=== PATIENT | female | born 1965 | race Caucasian/White ===

== ENCOUNTER 2021-10-28 09:02 | Inpatient (IN) ==
--- NOTE | 2021-10-28 10:34 | Cat Scan Report ---
INDICATION: Partial small bowel obstruction COMPARISON: Previous examination dated 10/11/2021 performed at [facility] TECHNIQUE: Axial images were obtained through the abdomen and pelvis. Sagittally and coronally reformatted images. FINDINGS: Lung bases:No pulmonary parenchymal density. No calcified or noncalcified nodule. No pleural or pericardial effusion Liver:Negative to the limits of noncontrast enhanced examination. Liver contour is smooth without evidence for cirrhosis Gallbladder, bilary:Gallbladder is not identified consistent cholecystectomy. No dilated bile ducts Spleen:No splenomegaly Pancreas:No pancreatic mass. No peripancreatic abnormality Adrenal glands:Negative Kidneys,ureters,bladder:No solid renal mass. No hydronephrosis. No obstructing or nonobstructing calculi. No hydroureter. No ureteral calculus. No bladder stone. No detectable bladder mass. Gastrointestinal:No detectable colonic mass. There is no diverticulitis. Negative small bowel. No mechanical small bowel obstruction. No bowel wall thickening. No focal abnormality. Negative stomach and duodenum. No focal abnormality. Appendix: The appendix is removed Vascular:No abdominal aortic aneurysm. Incidental note is made of a retroaortic left renal vein Lymphatic:No retroperitoneal adenopathy. No significant mesenteric adenopathy. Mesentery, peritoneum:No free intraperitoneal fluid. No intra-abdominal abscess. No pneumoperitoneum Reproductive:Uterus is not identified consistent with hysterectomy. No adnexal mass Musculoskeletal:No lumbar compression fractures. Degenerative disc narrowing at L5-S1. There is a hypertrophied left L5 transverse process with unilateral sacral pseudoarticulation. Sacrum is negative. No fracture. Pelvis and hips are negative. No anterior abdominal wall or inguinal hernia. IMPRESSION: 1. Previous cholecystectomy, appendectomy, hysterectomy 2. Otherwise negative noncontrast enhanced CT scan. There is no mechanical small bowel obstruction. The exam was performed using radiation dose optimization techniques including, but not limited to, automated exposure control, adjustment of the mA and/or kV according to patient size and use of iterative reconstruction technique. Interpreted and Authenticated by: Juan Carlos Lynn 10/28/21
[2021-10-28] MEDS: ONDANSETRON 4 MG/2 ML VIAL IV PRN ×2 (11:11→21:39)
[2021-10-28] MEDS: LACTATED RINGERS 1,000 ML IV SCH ×2 (11:11→21:25)
[2021-10-28] MEDS: HYDROmorphone 0.5 MG/0.5 ML SYRINGE IV PRN ×4 (11:38→18:49)
[2021-10-28] MEDS ORDERED: LORazepam 2 MG/ML VIAL IV ONE (12:09)
--- NOTE | 2021-10-28 13:01 | XRay Report ---
INDICATION: NGT placement verification TECHNIQUE: Supine abdomen. COMPARISON: None FINDINGS:Esophagogastric tube is in the stomach. The tip is curled and directed cephalad in the gastric fundus IMPRESSION: Esophagogastric tube in the stomach Interpreted and Authenticated by: Juan Carlos Lynn 10/28/21
[2021-10-28] MEDS: diphenhydrAMINE 50 MG/ML VIAL IV PRN ×3 (13:43→21:40)
[2021-10-28] MEDS: 0.9 % SODIUM CHLORIDE 10 ML SYRINGE IV SCH ×2 (13:59→22:13)
[2021-10-28] MEDS ORDERED: DIATRIZOATE MEGLU/DIATRIZO SOD 120 ML BOTTLE PO ONE (14:58)
--- NOTE | 2021-10-28 15:19 | XRay Report ---
INDICATION: eval small bowel transit. TECHNIQUE: Water-soluble contrast material was injected in the stomach through the esophagogastric tube. COMPARISON: Previous CT scan dated 10/28/2021 FINDINGS: Normal small bowel and colonic transit time. Small bowel is not dilated. Normal mucosal pattern. There is contrast material within the sigmoid colon by 90 minutes post injection. There is no small bowel dilatation. No transition point. IMPRESSION: Normal Gastrografin small bowel study Interpreted and Authenticated by: Juan Carlos Lynn 10/28/21
[2021-10-28] MEDS: morphine 2 MG/ML VIAL IV PRN (21:39)
[2021-10-29] MEDS: morphine 2 MG/ML VIAL IV PRN ×4 (00:05→11:20)
[2021-10-29] MEDS: diphenhydrAMINE 50 MG/ML VIAL IV PRN ×3 (01:55→11:21)
[2021-10-29] MEDS: HYDROmorphone 0.5 MG/0.5 ML SYRINGE IV PRN ×2 (01:56→09:16)
[2021-10-29] MEDS: 0.9 % SODIUM CHLORIDE 10 ML SYRINGE IV SCH (04:47)
[2021-10-29 06:53] LABS: Basophils # (Auto) 0.03 K/mcL (0.00-0.30); Basophils % (Auto) 0.4 % (0.0-2.0); Eosinophils # (Auto) 0.25 K/mcL (0.00-0.70); Eosinophils % (Auto) 3.6 % (0.0-7.0); Hematocrit 37.6 % (34.1-44.9); Hemoglobin 12.1 g/dL (11.2-15.7); Mean Cell Volume 91.7 fL (80.0-100.0); Mean Corpuscular HGB Conc 32.2 g/dL (31.0-36.0); Mean Platelet Volume 9.7 fL (7.4-10.4); Monocytes # (Auto) 0.54 K/mcL (0.10-0.90); Monocytes % (Auto) 7.7 % (1.0-12.0); Neutrophils % (Auto) 61.3 % (38.0-78.0); Platelet Count 197 K/mcL (140-440); Red Cell Distribution Width 13.6 % (11.5-14.5)
[2021-10-29 07:11] LABS: Blood Urea Nitrogen 13 mg/dL (6-20); Calcium 8.6 mg/dL (8.6-10.4); Carbon Dioxide 23 mmol/L (22-30); Chloride 106 mmol/L (96-108); Glomerular Filtration Rate 96; Glucose 95 mg/dL (70-105)
[2021-10-29] MEDS: ONDANSETRON 4 MG/2 ML VIAL IV PRN ×2 (07:53→11:51)
--- NOTE | 2021-10-29 08:04 | XRay Report ---
INDICATION: Follow-up partial small bowel obstruction TECHNIQUE: Supine abdomen. COMPARISON: Previous small bowel study dated 10/28/2021 FINDINGS:There is contrast material and gas within the colon. There is no significant small bowel contrast material remaining. Colon is normal in caliber. No dilated gas-filled small bowel. Esophagogastric tube remains in unchanged position. IMPRESSION: 1. Unremarkable bowel gas pattern 2. No remaining contrast material within the small bowel Interpreted and Authenticated by: Juan Carlos Lynn 10/29/21
[2021-10-29] MEDS: LACTATED RINGERS 1,000 ML IV SCH (08:31)
[2021-10-29] MEDS ORDERED: ATORVASTATIN 40 MG TABLET PO SCH (09:00)
[2021-10-29] MEDS ORDERED: LISINOPRIL 20 MG TABLET PO SCH (09:00)
[2021-10-29] MEDS ORDERED: LISINOPRIL/HCTZ 20/12.5MG TABLET PO SCH (09:00)
[2021-10-29] MEDS ORDERED: DOXYCYCLINE HYCLATE 100 MG TABLET.ORL PO SCH (09:00)
[2021-10-29] MEDS ORDERED: HYDROCHLOROTHIAZIDE 12.5 MG CAPSULE PO SCH (09:00)
[2021-10-29] MEDS ORDERED: METOPROLOL SUCCINATE 25 MG TAB.XL.24H PO SCH (09:00)
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
--- OUTSIDE RECORDS SUMMARY | 2021-11-01 17:04 | External Medical Summary ---
:1965 Author Care Team Providers Name Role Phone Non Established Primary Care Provider Unavailable Allergies Code Code System Name Reaction Severity Status Onset Sulfa (Sulfonamide Rash Moderate Active Antibiotics) Toradol Anaphylaxis Severe Active 87001 RxNorm Tramadol Chest Pain Severe Active Medications Name Status Start Date Stop Date acetaminophen 300 mg-codeine 60 mg tablet Active Not available albuterol sulfate HFA 90 mcg/actuation aerosol inhaler Active Not available amlodipine 5 mg tablet Active Not avail able amoxicillin Active Not available amoxicillin 875 mg tablet Completed 2020 atorvastatin 80 mg tablet Active Not av ailable carisoprodol 350 mg tablet Active Not a vailable TAKE 1 TABLET BY MOUTH TWICE DAILY NEEDED cyclobenzaprine 10 mg tablet Active Not available estradiol 2 mg tablet Active Not availa ble hydrocodone 5 mg-acetaminophen 325 mg tablet Active Not available hydroxyzine pamoate 50 mg capsule Active Not available lidocaine 5 % topical patch Active Not available lisinopril 20 mg-hydrochlorothiazide 12.5 mg tablet Active Not available metoprolol succinate ER 25 mg tablet,extended release 24 Active Not available hr ondansetron 4 mg disintegrating tablet Active Not available ondansetron 8 mg disintegrating tablet Active Not available oxycodone 5 mg tablet Active Not availa ble prochlorperazine maleate 10 mg tablet Active Not available tizanidine 2 mg tablet Active Not avail able Tylenol-Codeine #4 Active Not available zolpidem 10 mg tablet Active Not availa ble Problems None recorded. Procedures None recorded. Results Lab Results None recorded. Past Encounters 04/30/2021 Fany Peters, DMD: [address] [place] [address], Ph. 08/24/2020 Toothache Maria Fernanda Clancy, DDS: [address] [place] [address], Ph. 08/20/2020 Brandon Matias, DDS: [address] [address], Ph. Social History Tobacco Smoking Status Never Smoker Vaccine List None recorded. Plan of Care Patient Instructions [place] and floss 2-3 times daily Eat a balanced diet Limit soda/sports drinks consumption to lower your risk of tooth decay Recommend desensitizing toothpaste for s ensitivity Recommend OTC fluoride rinse (ACT or oth ers) Use a soft bristle toothbrush Follow up with your hygienist [place] and floss 2-3 times daily Eat a balanced diet Limit soda/sports drinks consumption to lower your risk of tooth decay Recommend desensitizing toothpaste for s ensitivity Recommend OTC fluoride rinse (ACT or oth ers) Use a soft bristle toothbrush Follow up with your hygienist Reminders Provider Appointments None recorded. Lab None recorded. Referral None recorded. Procedures None recorded. Surgeries None recorded. Imaging None recorded. Vitals 04/30/2021 11:00AM Dental Exam/Limited Blood Pressure 133/83 mm[Hg] 08/24/2020 03:15PM Dental Exam/Limited Blood Pressure 122/71 mm[Hg]
== END 2021-10-29 13:08 | disposition home or self-care (01) | DRG 390 ==
LOC: MEDSUR 09:20
PROVIDERS: ADMIT Surgery; ATTEND Surgery

== ENCOUNTER 2023-07-06 09:25 | Inpatient (IN) ==
[2023-07-06] MEDS ORDERED: PROMETHAZINE 25 MG/ML VIAL IV PRN (09:40)
[2023-07-06 10:42] LABS: Basophils # (Auto) 0.03 K/mcL (0.00-0.30); Basophils % (Auto) 0.5 % (0.0-2.0); Eosinophils # (Auto) 0.16 K/mcL (0.00-0.70); Eosinophils % (Auto) 2.8 % (0.0-7.0); Hematocrit 40.5 % (34.1-44.9); Hemoglobin 12.8 g/dL (11.2-15.7); Lymphocytes # (Auto) 1.74 K/mcL (1.50-4.80); Lymphocytes % (Auto) 30.2 % (15.5-49.0); Mean Cell Volume 94.6 fL (80.0-100.0); Mean Corpuscular HGB Conc 31.6 g/dL (31.0-36.0); Mean Platelet Volume 9.9 fL (8.8-12.5); Monocytes # (Auto) 0.39 K/mcL (0.10-0.90); Monocytes % (Auto) 6.8 % (1.0-12.0); Neutrophils % (Auto) 59.4 % (38.0-78.0); Platelet Count 233 K/mcL (140-440); RBC 4.28 M/mcL (3.59-5.38); Red Cell Distribution Width 13.3 % (11.5-14.5); WBC 5.8 K/mcL (4.5-11.0)
[2023-07-06] MEDS: METHYLNALTREXONE BROMIDE 12 MG/0.6 ML SYRINGE SQ SCH (10:57)
[2023-07-06] MEDS: HYDROmorphone 1 MG/ML SYRINGE IV PRN ×6 (11:21→23:19)
[2023-07-06] MEDS: ONDANSETRON 4 MG/2 ML VIAL IV PRN ×2 (11:21→16:26)
[2023-07-06] MEDS: 0.9 % SODIUM CHLORIDE 1,000 ML IV SCH ×3 (11:23→20:55)
[2023-07-06 11:39] LABS: ALT/SGPT 15 U/L (<40); AST/SGOT 17 U/L (<32); Albumin 3.9 gm/dL (3.2-5.2); Albumin/Globulin Ratio 1.2 (1.0-2.3); Alkaline Phosphatase 68 U/L (39-117); Bilirubin,Direct < 0.2 mg/dL (0-0.3); Bilirubin,Total 0.3 mg/dL (0.1-1.0); Blood Urea Nitrogen 22 mg/dL (6-20); Calcium 9.2 mg/dL (8.6-10.4); Carbon Dioxide 28 mmol/L (22-30); Chloride 98 mmol/L (96-108); Globulin 3.2 gm/dL (2.2-3.7); Glomerular Filtration Rate 81; Glucose 94 mg/dL (70-105); Lactate Dehydrogenase 203 U/L (135-225); Phosphorous 2.6 mg/dL (2.5-4.5); Triglycerides 243 mg/dL (<150); Uric Acid 6.3 mg/dL (2.5-8.0)
[2023-07-06] MEDS: METOCLOPRAMIDE 10 MG/2 ML VIAL IV SCH ×3 (12:09→23:22)
[2023-07-06] MEDS: 0.9 % SODIUM CHLORIDE 10 ML SYRINGE IV SCH ×2 (14:40→20:08)
[2023-07-06] MEDS ORDERED: diphenhydrAMINE 50 MG/ML VIAL IV ONE (15:24)
[2023-07-06] MEDS ORDERED: IOPAMIDOL 100 ML BOTTLE IV ONE (16:50)
[2023-07-07] MEDS: HYDROmorphone 1 MG/ML SYRINGE IV PRN ×11 (00:58→22:01)
[2023-07-07] MEDS: METOCLOPRAMIDE 10 MG/2 ML VIAL IV SCH ×3 (05:05→17:18)
[2023-07-07] MEDS: 0.9 % SODIUM CHLORIDE 1,000 ML IV SCH ×3 (05:05→20:07)
[2023-07-07] MEDS: 0.9 % SODIUM CHLORIDE 10 ML SYRINGE IV SCH ×3 (05:05→20:07)
[2023-07-07] MEDS: METHYLNALTREXONE BROMIDE 12 MG/0.6 ML SYRINGE SQ SCH (10:01)
[2023-07-08] MEDS: HYDROmorphone 1 MG/ML SYRINGE IV PRN ×11 (00:05→22:18)
[2023-07-08] MEDS: METOCLOPRAMIDE 10 MG/2 ML VIAL IV SCH ×4 (00:05→16:51)
[2023-07-08] MEDS: 0.9 % SODIUM CHLORIDE 1,000 ML IV SCH ×2 (02:09→12:40)
[2023-07-08] MEDS: 0.9 % SODIUM CHLORIDE 10 ML SYRINGE IV SCH ×3 (04:44→20:56)
[2023-07-08] MEDS: METHYLNALTREXONE BROMIDE 12 MG/0.6 ML SYRINGE SQ SCH (08:09)
[2023-07-08] MEDS ORDERED: ZOLPIDEM 5 MG TABLET PO PRN (13:51)
[2023-07-09] MEDS: METOCLOPRAMIDE 10 MG/2 ML VIAL IV SCH ×3 (00:05→12:18)
[2023-07-09] MEDS: HYDROmorphone 1 MG/ML SYRINGE IV PRN ×7 (00:05→14:21)
[2023-07-09] MEDS: 0.9 % SODIUM CHLORIDE 10 ML SYRINGE IV SCH ×2 (05:03→12:18)
[2023-07-09 07:01] LABS: Basophils # (Auto) 0.04 K/mcL (0.00-0.30); Basophils % (Auto) 0.5 % (0.0-2.0); Eosinophils # (Auto) 0.23 K/mcL (0.00-0.70); Eosinophils % (Auto) 3.1 % (0.0-7.0); Hematocrit 39.4 % (34.1-44.9); Hemoglobin 12.5 g/dL (11.2-15.7); Lymphocytes % (Auto) 20.4 % (15.5-49.0); Mean Cell Volume 95.6 fL (80.0-100.0); Mean Corpuscular HGB Conc 31.7 g/dL (31.0-36.0); Mean Platelet Volume 9.4 fL (8.8-12.5); Monocytes # (Auto) 0.44 K/mcL (0.10-0.90); Neutrophils % (Auto) 69.7 % (38.0-78.0); Platelet Count 238 K/mcL (140-440); RBC 4.12 M/mcL (3.59-5.38); Red Cell Distribution Width 12.8 % (11.5-14.5); WBC 7.4 K/mcL (4.5-11.0)
[2023-07-09 07:32] LABS: ALT/SGPT 17 U/L (<40); AST/SGOT 20 U/L (<32); Albumin 3.7 gm/dL (3.2-5.2); Albumin/Globulin Ratio 1.3 (1.0-2.3); Alkaline Phosphatase 66 U/L (39-117); Bilirubin,Direct < 0.2 mg/dL (0-0.3); Bilirubin,Total 0.3 mg/dL (0.1-1.0); Blood Urea Nitrogen 6 mg/dL (6-20); Calcium 8.6 mg/dL (8.6-10.4); Carbon Dioxide 25 mmol/L (22-30); Chloride 102 mmol/L (96-108); Globulin 2.8 gm/dL (2.2-3.7); Glomerular Filtration Rate 106; Glucose 116 mg/dL (70-105); Lactate Dehydrogenase 178 U/L (135-225); Phosphorous 2.1 mg/dL (2.5-4.5); Triglycerides 88 mg/dL (<150)
[2023-07-09 08:43] LABS: Erythrocyte Sedimentation Rate 8 mm/hr (0-30)
== END 2023-07-09 14:41 | disposition home or self-care (01) | DRG 392 ==
LOC: MEDSUR 09:25
PROVIDERS: ADMIT Family Medicine Adult Medicine; ATTEND Family Medicine Adult Medicine

== ENCOUNTER 2025-03-29 21:57 | Inpatient (IN) ==
[2025-03-29] MEDS ORDERED: IOPAMIDOL 100 ML BOTTLE IV ONE (21:58)
[2025-03-29 22:10] LABS: POC Calcium, Ionized 1.24 (1.16-1.32); POC Creatinine 0.8 (0.6-1.2); POC Potassium 3.4 (3.3-5.1)
[2025-03-29] MEDS: ONDANSETRON 4 MG/2 ML VIAL IV ONE (22:13)
[2025-03-29] MEDS: LACTATED RINGERS 1,000 ML IV ONE (22:21)
[2025-03-29 22:41] LABS: Basophils # (Auto) 0.02 K/mcL (0.00-0.30); Basophils % (Auto) 0.2 % (0.0-2.0); Eosinophils # (Auto) 0.07 K/mcL (0.00-0.70); Eosinophils % (Auto) 0.7 % (0.0-7.0); Hemoglobin 13.1 g/dL (11.2-15.7); Lymphocytes # (Auto) 2.77 K/mcL (1.50-4.80); Lymphocytes % (Auto) 26.9 % (15.5-49.0); Mean Cell Volume 95.2 fL (80.0-100.0); Mean Corpuscular HGB Conc 32.8 g/dL (31.0-36.0); Mean Platelet Volume 9.5 fL (8.8-12.5); Monocytes # (Auto) 0.65 K/mcL (0.10-0.90); Monocytes % (Auto) 6.3 % (1.0-12.0); Neutrophils % (Auto) 65.7 % (38.0-78.0); Platelet Count 267 K/mcL (140-440); WBC 10.3 K/mcL (4.5-11.0)
[2025-03-29] MEDS: HYDROmorphone 1 MG/ML SYRINGE IV ONE ×2 (23:17→23:51)
[2025-03-29] MEDS: diphenhydrAMINE 50 MG/ML VIAL IV ONE (23:17)
[2025-03-29 23:21] LABS: ALT/SGPT 17 U/L (<40); AST/SGOT 24 U/L (<32); Albumin 4.2 gm/dL (3.2-5.2); Albumin/Globulin Ratio 1.4 (1.0-2.3); Alkaline Phosphatase 78 U/L (39-117); Bilirubin,Total 0.2 mg/dL (0.1-1.0); Blood Urea Nitrogen 18 mg/dL (6-20); Calcium 9.9 mg/dL (8.6-10.4); Carbon Dioxide 21 mmol/L (22-30); Chloride 109 mmol/L (96-108); Globulin 2.9 gm/dL (2.2-3.7); Glomerular Filtration Rate 80; Glucose 167 mg/dL (70-105); Potassium 3.2 mmol/L (3.3-5.1); Sodium 147 mmol/L (133-145)
[2025-03-30] MEDS: LACTATED RINGERS 1,000 ML IV ONE (00:11)
[2025-03-30] MEDS: fentaNYL 100 MCG/2 ML VIAL IV ONE (00:23)
[2025-03-30] MEDS: DEXAMETHASONE 10 MG/ML VIAL IV ONE (00:56)
[2025-03-30] MEDS: FAMOTIDINE/PF 20 MG/2 ML VIAL IV ONE (01:26)
[2025-03-30] MEDS: HYDROmorphone 1 MG/ML SYRINGE IV ONE (01:42)
[2025-03-30] MEDS: morphine 4 MG/ML VIAL IV ONE ×3 (02:30→07:08)
[2025-03-30] MEDS: diphenhydrAMINE 50 MG/ML VIAL IV ONE (02:30)
[2025-03-30 02:39] LABS: Appearance,Urine CLEAR (Clear); Bilirubin,Urine Negative (Negative); Color,Urine YELLOW; Glucose,Urine (UA) Negative (Negative); Ketones,Urine Negative (Negative); Leukocyte Esterase,Urine Negative /uL (Negative); Mucus,Urine FEW /hpf; Nitrate,Urine Negative (Negative); Protein,Urine Negative (Negative); Specific Gravity,Urine > 1.060 (1.000-1.035); Urine Blood Negative (Negative); Urine RBC 1 /hpf (0-3); Urine Squamous Epithelial Cell 5 /hpf (0-4); Urine WBC 1 /hpf (0-4); Urobilinogen,Urine Negative
[2025-03-30] MEDS: ACETAMINOPHEN 650 MG/65 ML BAG IV PRN (04:39)
[2025-03-30] MEDS: morphine 4 MG/ML VIAL IV PRN (05:36)
[2025-03-30] MEDS: ONDANSETRON 4 MG/2 ML VIAL IV PRN (05:36)
[2025-03-30] MEDS: LACTATED RINGERS 1,000 ML IV SCH (07:02)
[2025-03-30] MEDS: diphenhydrAMINE 50 MG/ML VIAL IV PRN ×2 (07:08→16:57)
[2025-03-30] MEDS: LIDOCAINE 2% URO-JET 10 ML JEL.PF.APP UR ONE (07:42)
[2025-03-30] MEDS: LIDOCAINE 2% URO-JET 10 ML JEL.PF.APP UR SCH (07:43)
[2025-03-30] MEDS: 0.9 % SODIUM CHLORIDE 10 ML SYRINGE IV SCH (08:02)
[2025-03-30] MEDS: DOCUSATE SODIUM 100 MG CAPSULE PO SCH (10:11)
[2025-03-30] MEDS: PYRIDOSTIGMINE BROMIDE 10 MG/2 ML AMPUL IV SCH (10:25)
[2025-03-30] MEDS ORDERED: ZOLPIDEM 10 MG PO PRN (13:42)
[2025-03-30] MEDS ORDERED: ALBUTEROL SULFATE 60 PUFF INHALER INH PRN (13:45)
[2025-03-30] MEDS ORDERED: diphenhydrAMINE 50 MG/ML VIAL IV SCH (13:45)
[2025-03-30] MEDS: METHYLNALTREXONE BROMIDE 12 MG/0.6 ML SYRINGE SQ SCH (14:52)
[2025-03-30] MEDS: ERYTHROMYCIN LACTOBIONATE 250 MG in 0.9 % SODIUM CHLORIDE 100 ML IV SCH (14:53)
[2025-03-30] MEDS: SENNOSIDES 1 TABLET PO SCH (22:11)
[2025-03-30] MEDS: METOPROLOL SUCCINATE 25 MG TAB.XL.24H PO SCH (22:15)
[2025-03-30] MEDS ORDERED: METOPROLOL TARTRATE 5 MG/5 ML VIAL IV PRN (22:16)
[2025-03-30] MEDS: ZOLPIDEM 5 MG TABLET PO PRN (22:32)
[2025-03-31] MEDS: HYDROmorphone 0.5 MG/0.5 ML SYRINGE IV PRN (19:01)
[2025-04-01 06:56] LABS: Basophils # (Auto) 0.03 K/mcL (0.00-0.30); Basophils % (Auto) 0.3 % (0.0-2.0); Eosinophils # (Auto) 0.14 K/mcL (0.00-0.70); Eosinophils % (Auto) 1.5 % (0.0-7.0); Lymphocytes # (Auto) 1.53 K/mcL (1.50-4.80); Lymphocytes % (Auto) 16.5 % (15.5-49.0); Mean Cell Volume 96.1 fL (80.0-100.0); Mean Corpuscular HGB Conc 32.4 g/dL (31.0-36.0); Mean Platelet Volume 10.1 fL (8.8-12.5); Monocytes # (Auto) 0.56 K/mcL (0.10-0.90); Neutrophils % (Auto) 75.6 % (38.0-78.0); Platelet Count 211 K/mcL (140-440); RBC 3.85 M/mcL (3.59-5.38); Red Cell Distribution Width 12.5 % (11.5-14.5); WBC 9.3 K/mcL (4.5-11.0)
[2025-04-01 07:31] LABS: ALT/SGPT 20 U/L (<40); AST/SGOT 27 U/L (<32); Albumin 3.5 gm/dL (3.2-5.2); Albumin/Globulin Ratio 1.4 (1.0-2.3); Alkaline Phosphatase 59 U/L (39-117); Bilirubin,Direct < 0.2 mg/dL (0-0.3); Bilirubin,Total 0.4 mg/dL (0.1-1.0); Blood Urea Nitrogen 12 mg/dL (6-20); Calcium 8.5 mg/dL (8.6-10.4); Carbon Dioxide 26 mmol/L (22-30); Chloride 102 mmol/L (96-108); Globulin 2.5 gm/dL (2.2-3.7); Glomerular Filtration Rate 94; Glucose 99 mg/dL (70-105); Lactate Dehydrogenase 168 U/L (135-225); Phosphorous 2.5 mg/dL (2.5-4.5); Potassium 3.4 mmol/L (3.3-5.1); Sodium 140 mmol/L (133-145); Triglycerides 103 mg/dL (<150); Uric Acid 7.1 mg/dL (2.5-8.0)
[2025-04-01] MEDS: ONDANSETRON 4 MG/2 ML VIAL IV PRN (09:02)
[2025-04-01] MEDS ORDERED: DIATRIZOATE MEGLU/DIATRIZO SOD 30 ML BOTTLE PO ONE (10:00)
[2025-04-01] MEDS ORDERED: DIATRIZOATE MEGLU/DIATRIZO SOD 120ML BOTTLE PO ONE (10:00)
[2025-04-02 07:39] LABS: ALT/SGPT 17 U/L (<40); AST/SGOT 28 U/L (<32); Albumin 3.4 gm/dL (3.2-5.2); Albumin/Globulin Ratio 1.4 (1.0-2.3); Alkaline Phosphatase 57 U/L (39-117); Bilirubin,Direct 0.2 mg/dL (<0.3); Bilirubin,Total 0.5 mg/dL (0.1-1.0); Blood Urea Nitrogen 7 mg/dL (6-20); Calcium 8.2 mg/dL (8.6-10.4); Carbon Dioxide 24 mmol/L (22-30); Chloride 103 mmol/L (96-108); Globulin 2.4 gm/dL (2.2-3.7); Glomerular Filtration Rate 98; Glucose 79 mg/dL (70-105); Lactate Dehydrogenase 202 U/L (135-225); Phosphorous 2.2 mg/dL (2.5-4.5); Potassium 3.3 mmol/L (3.3-5.1); Sodium 139 mmol/L (133-145); Triglycerides 84 mg/dL (<150); Uric Acid 6.8 mg/dL (2.5-8.0)
[2025-04-02 08:28] LABS: Basophils # (Auto) 0.02 K/mcL (0.00-0.30); Basophils % (Auto) 0.2 % (0.0-2.0); Eosinophils # (Auto) 0.21 K/mcL (0.00-0.70); Eosinophils % (Auto) 2.1 % (0.0-7.0); Hematocrit 36.3 % (34.1-44.9); Hemoglobin 11.8 g/dL (11.2-15.7); Lymphocytes # (Auto) 2.06 K/mcL (1.50-4.80); Lymphocytes % (Auto) 20.8 % (15.5-49.0); Mean Cell Volume 94.8 fL (80.0-100.0); Mean Corpuscular HGB Conc 32.5 g/dL (31.0-36.0); Mean Platelet Volume 10.7 fL (8.8-12.5); Monocytes % (Auto) 6.1 % (1.0-12.0); Neutrophils % (Auto) 70.3 % (38.0-78.0); Platelet Count 221 K/mcL (140-440); RBC 3.83 M/mcL (3.59-5.38); Red Cell Distribution Width 12.5 % (11.5-14.5); WBC 9.9 K/mcL (4.5-11.0)
[2025-04-02] MEDS: HYDROmorphone 0.5 MG/0.5 ML SYRINGE IV PRN (20:10)
[2025-04-02] MEDS: oxyCODONE IR 5 MG TABLET PO ONE ×2 (22:57→23:16)
[2025-04-03 07:04] LABS: Basophils # (Auto) 0.04 K/mcL (0.00-0.30); Basophils % (Auto) 0.6 % (0.0-2.0); Eosinophils # (Auto) 0.41 K/mcL (0.00-0.70); Eosinophils % (Auto) 5.8 % (0.0-7.0); Hematocrit 32.2 % (34.1-44.9); Hemoglobin 10.6 g/dL (11.2-15.7); Lymphocytes # (Auto) 2.06 K/mcL (1.50-4.80); Lymphocytes % (Auto) 28.9 % (15.5-49.0); Mean Cell Volume 94.4 fL (80.0-100.0); Mean Corpuscular HGB Conc 32.9 g/dL (31.0-36.0); Mean Platelet Volume 10.6 fL (8.8-12.5); Monocytes # (Auto) 0.51 K/mcL (0.10-0.90); Monocytes % (Auto) 7.2 % (1.0-12.0); Neutrophils % (Auto) 57.2 % (38.0-78.0); Platelet Count 189 K/mcL (140-440); RBC 3.41 M/mcL (3.59-5.38); Red Cell Distribution Width 12.3 % (11.5-14.5); WBC 7.1 K/mcL (4.5-11.0)
[2025-04-03 07:25] LABS: ALT/SGPT 15 U/L (<40); AST/SGOT 22 U/L (<32); Albumin 3.3 gm/dL (3.2-5.2); Albumin/Globulin Ratio 1.5 (1.0-2.3); Alkaline Phosphatase 50 U/L (39-117); Bilirubin,Direct < 0.2 mg/dL (0-0.3); Bilirubin,Total 0.4 mg/dL (0.1-1.0); Blood Urea Nitrogen 6 mg/dL (6-20); Calcium 8.1 mg/dL (8.6-10.4); Carbon Dioxide 25 mmol/L (22-30); Chloride 105 mmol/L (96-108); Globulin 2.2 gm/dL (2.2-3.7); Glomerular Filtration Rate 98; Glucose 91 mg/dL (70-105); Lactate Dehydrogenase 196 U/L (135-225); Phosphorous 1.9 mg/dL (2.5-4.5); Potassium 3.3 mmol/L (3.3-5.1); Sodium 139 mmol/L (133-145); Triglycerides 103 mg/dL (<150); Uric Acid 6.7 mg/dL (2.5-8.0)
[2025-04-03] MEDS: AZITHROMYCIN 500 MG in 0.9 % SODIUM CHLORIDE 250 ML IV SCH (08:45)
[2025-04-03] MEDS ORDERED: CARISOPRODOL 350 MG TABLET PO PRN (16:37)
[2025-04-04] MEDS: HYDROCHLOROTHIAZIDE 25 MG TABLET PO SCH (09:25)
[2025-04-04] MEDS: LISINOPRIL 20 MG TABLET PO SCH (09:25)
[2025-04-04 15:37] VITALS: TEMP 98.6; O2SAT 98
== END 2025-04-04 16:29 | disposition home or self-care (01) | DRG 392 ==
LOC: ED 21:57 → MEDSUR 03-30 06:59
PROVIDERS: ADMIT Family Medicine Adult Medicine; ATTEND Family Medicine Adult Medicine

== ENCOUNTER 2025-11-06 22:12 | Inpatient (IN) ==
[2025-11-06] MEDS ORDERED: IOPAMIDOL 100 ML BOTTLE IV ONE (22:13)
[2025-11-06] MEDS: 0.9 % SODIUM CHLORIDE 1,000 ML IV ONE (22:33)
[2025-11-06] MEDS: DEXAMETHASONE 10 MG/ML VIAL IV ONE (23:06)
[2025-11-06] MEDS: diphenhydrAMINE 50 MG/ML VIAL IV ONE (23:07)
[2025-11-06] MEDS: ONDANSETRON 4 MG/2 ML VIAL IV ONE (23:07)
[2025-11-06 23:18] LABS: Basophils # (Auto) 0.02 K/mcL (0.00-0.30); Basophils % (Auto) 0.2 % (0.0-2.0); Eosinophils # (Auto) 0.25 K/mcL (0.00-0.70); Eosinophils % (Auto) 2.4 % (0.0-7.0); Hematocrit 39.8 % (34.1-44.9); Hemoglobin 13.2 g/dL (11.2-15.7); Lymphocytes # (Auto) 1.73 K/mcL (1.50-4.80); Lymphocytes % (Auto) 16.7 % (15.5-49.0); Mean Corpuscular HGB Conc 33.2 g/dL (31.0-36.0); Monocytes # (Auto) 0.51 K/mcL (0.10-0.90); Monocytes % (Auto) 4.9 % (1.0-12.0); Neutrophils % (Auto) 75.7 % (38.0-78.0); Platelet Count 266 K/mcL (140-440); RBC 4.45 M/mcL (3.59-5.38); WBC 10.4 K/mcL (4.5-11.0)
[2025-11-06 23:58] LABS: ALT/SGPT 16 U/L (<40); AST/SGOT 26 U/L (<32); Albumin 4.3 gm/dL (3.2-5.2); Albumin/Globulin Ratio 1.4 (1.0-2.3); Alkaline Phosphatase 89 U/L (39-117); Anion Gap 13.0 (8.0-16.0); Bilirubin,Total 0.3 mg/dL (0.1-1.0); Blood Urea Nitrogen 21 mg/dL (8-23); Calcium 9.5 mg/dL (8.6-10.4); Carbon Dioxide 23 mmol/L (22-30); Chloride 101 mmol/L (96-108); Globulin 3.0 gm/dL (2.2-3.7); Glucose 114 mg/dL (70-105); Potassium 3.9 mmol/L (3.3-5.1); Sodium 137 mmol/L (133-145)
[2025-11-07] MEDS ORDERED: ONDANSETRON 4 MG/2 ML VIAL IV PRN ×2 (00:25→14:03)
[2025-11-07] MEDS: BENZOCAINE ONE 20% 1 SPRAY TOPICAL (00:25)
[2025-11-07] MEDS: 0.9 % SODIUM CHLORIDE 1,000 ML IV SCH (01:32)
[2025-11-07] MEDS: ZOLPIDEM 5 MG TABLET PO ONE (02:06)
[2025-11-07] MEDS: ACETAMINOPHEN 325 MG TABLET PO PRN (02:59)
[2025-11-07] MEDS: POLYETHYLENE GLYCOL 3350 17 GM PACKET PO SCH (14:42)
[2025-11-07] MEDS: METHYLNALTREXONE BROMIDE 12 MG/0.6 ML SYRINGE SQ SCH (14:43)
[2025-11-07] MEDS: HYDROmorphone 0.5 MG/0.5 ML SYRINGE IV PRN (14:43)
[2025-11-07] MEDS: diphenhydrAMINE 50 MG/ML VIAL IV PRN (16:30)
[2025-11-07 17:59] LABS: Barbiturate Screen,Urine None detected; Benzodiazepines Screen,Urine Suspect positive; Fentanyl, Urine Screen None Detected; Opiate Screen,Urine Suspect Positive; Oxycodone, Urine Screen None detected; Phencyclidine Screen,Urine None detected
[2025-11-07] MEDS ORDERED: METOCLOPRAMIDE 10 MG/2 ML VIAL IV SCH (18:00)
[2025-11-07] MEDS: PYRIDOSTIGMINE BROMIDE 10 MG/2 ML AMPUL IV SCH (18:04)
[2025-11-07] MEDS: ONDANSETRON 4 MG/2 ML VIAL IV PRN (19:06)
[2025-11-07] MEDS: ZOLPIDEM 5 MG TABLET PO PRN (23:13)
[2025-11-08] MEDS ORDERED: ALBUTEROL SULFATE 60 PUFF INHALER INH PRN (15:00)
[2025-11-08] MEDS ORDERED: ZOLPIDEM 10 MG PO PRN (15:00)
[2025-11-08] MEDS ORDERED: ONDANSETRON 4 MG ODT TABLET SL PRN (15:03)
[2025-11-08] MEDS: CARISOPRODOL 350 MG TABLET PO SCH (16:18)
[2025-11-08] MEDS ORDERED: METHOCARBAMOL 500 MG TABLET PO SCH (17:00)
[2025-11-08] MEDS: METOPROLOL SUCCINATE 25 MG TAB.XL.24H PO SCH (20:12)
[2025-11-09 09:42] LABS: ALT/SGPT 8 U/L (<40); AST/SGOT 19 U/L (<32); Albumin 3.6 gm/dL (3.2-5.2); Albumin/Globulin Ratio 1.4 (1.0-2.3); Alkaline Phosphatase 68 U/L (39-117); Anion Gap 19.0 (8.0-16.0); Bilirubin,Direct < 0.2 mg/dL (0-0.3); Bilirubin,Total 0.4 mg/dL (0.1-1.0); Blood Urea Nitrogen 11 mg/dL (8-23); Calcium 8.5 mg/dL (8.6-10.4); Carbon Dioxide 18 mmol/L (22-30); Chloride 105 mmol/L (96-108); Globulin 2.5 gm/dL (2.2-3.7); Glucose 64 mg/dL (70-105); Phosphorous 2.7 mg/dL (2.5-4.5); Potassium 3.6 mmol/L (3.3-5.1); Sodium 142 mmol/L (133-145); Triglycerides 150 mg/dL (<150); Uric Acid 6.7 mg/dL (2.5-8.0)
[2025-11-09 11:01] LABS: Basophils # (Auto) 0.02 K/mcL (0.00-0.30); Basophils % (Auto) 0.2 % (0.0-2.0); Eosinophils # (Auto) 0.14 K/mcL (0.00-0.70); Eosinophils % (Auto) 1.6 % (0.0-7.0); Hematocrit 32.9 % (34.1-44.9); Hemoglobin 11.0 g/dL (11.2-15.7); Lymphocytes # (Auto) 1.70 K/mcL (1.50-4.80); Lymphocytes % (Auto) 19.4 % (15.5-49.0); Mean Corpuscular HGB Conc 33.4 g/dL (31.0-36.0); Monocytes # (Auto) 0.49 K/mcL (0.10-0.90); Monocytes % (Auto) 5.6 % (1.0-12.0); Neutrophils % (Auto) 73.0 % (38.0-78.0); Platelet Count 203 K/mcL (140-440); RBC 3.65 M/mcL (3.59-5.38); WBC 8.8 K/mcL (4.5-11.0)
[2025-11-10] MEDS: PYRIDOSTIGMINE 60 MG TABLET PO SCH (16:26)
[2025-11-12 19:08] VITALS: TEMP 98.4; O2SAT 100
== END 2025-11-12 18:58 | disposition home or self-care (01) | DRG 392 ==
LOC: ED 22:12 → MEDSUR 22:12
PROVIDERS: ADMIT Family Medicine Adult Medicine; ATTEND Family Medicine Adult Medicine